=== PATIENT | female | born 1965 | race Caucasian/White ===

== ENCOUNTER → 2017-08-28 | Outpatient (CLI) | payer MEDICARE ==
[~2017-08-28] MED LIST: ALPR1TAB72 PO; ARIP1SOL PO; ASPI81TA57 PO; CALC-793 PO; CRS350T PO; CYCL10TA9 PO; ESTR1TAB24 PO; FLC1T PO; FLUT16SP22 NSEACH; HYDR-2962 PO; LEFL20TA4 PO; LEUC5TAB PO; MAGN400C PO; METH10TA3 PO; MTHL5T PO; MTX2.5T PO; MULT-963 PO; TRAM50TA2 PO; VITA800C PO
--- NOTE | 2017-08-28 14:09 | Diagnostic Imaging Report ---
INDICATION: Routine screening. COMPARISON: 03/25/2015 and 04/02/2014. TECHNIQUE: Screening digital mammography was performed bilaterally with a Computer Aided Detection (CAD) system. FINDINGS: Bilateral breast implants are again noted. The breast parenchyma remains heterogeneously dense, limiting the sensitivity of mammography. The overall parenchymal pattern appears to be stable. No dominant masses or malignant appearing microcalcifications are seen. The axillae are unremarkable. IMPRESSION: No mammographic features suspicious for malignancy are identified. ACR BI-RADS Category 2: Benign findings. Result letter will be mailed to the patient. Note: At least 10% of breast cancer is not imaged by mammography. Dictated by: Dictated on workstation # [id number]
== END ==
LOC: RAD 11:29
PROVIDERS: ATTEND Obstetrics & Gynecology
DX: Z12.31 Encounter for screening mammogram for malignant neoplasm of breast (principal)
CPT/HCPCS: 77067

== ENCOUNTER → 2018-10-16 | Outpatient (CLI) | payer MEDICARE ==
--- NOTE | 2018-10-16 19:50 | Diagnostic Imaging Report ---
EXAMINATION: Digital mammogram bilateral screening with 3D tomosynthesis. The current study was also evaluated with a Computer Aided Detection (CAD) system. This study was compared to the prior exams of 08/28/2017, 03/25/2015, and 04/02/2014. At this time, there are no current complaints. FINDINGS: There are bilateral breast implants in place. The implants appear similar to the prior study. There is no sign of an extracapsular rupture of either implant. The fibroglandular tissue overlying the implants is heterogeneously dense. This does limit the sensitivity of this exam. Overall, there does not appear to have been any significant change. There is no primary or secondary sign of malignancy noted. IMPRESSION: 1. There is no evidence for malignancy. 2. The implants appear stable. ACR BI-RADS Category 1: Negative. Result letter will be mailed to the patient. Note: At least 10% of breast cancer is not imaged by mammography. Dictated by: Dictated on workstation # [id number]
== END ==
LOC: RAD 11:10
PROVIDERS: ATTEND Obstetrics & Gynecology
DX: Z12.31 Encounter for screening mammogram for malignant neoplasm of breast (principal); Z98.82 Breast implant status
CPT/HCPCS: 77067